=== PATIENT | female | born 1985 | race Asian ===

== ENCOUNTER 2023-04-09 07:39 | Emergency (ER) | payer OTHER ==
[~2023-04-09] VITALS: Ht 157.5 cm; Wt 59.4 kg
[2023-04-09 07:43] VITALS: BP 147/85; PULSE 106; RESP 14; TEMP 98.7; O2SAT 100
[2023-04-09] MEDS ORDERED: OFLO5SOL LEFT EYE (08:07)
[2023-04-09] MEDS ORDERED: CEPH-588 PO (08:07)
== END 2023-04-09 08:27 | disposition home or self-care (01) ==
LOC: MED 07:39
DX: L03.213 Periorbital cellulitis (principal); H00.014 Hordeolum externum left upper eyelid
CPT/HCPCS: 99283

== ENCOUNTER 2024-01-31 02:35 | Emergency (ER) | payer OTHER ==
[~2024-01-31] VITALS: Ht 135.9 cm; Wt 68.9 kg
[~2024-01-31 02:35] MED LIST: CEPH-588 PO; OFLO5SOL LEFT EYE
[2024-01-31 02:43] VITALS: BP 133/74; PULSE 104; RESP 14; TEMP 98.4; O2SAT 99
[2024-01-31 03:07] LABS: APPEARANCE,URINE CLEAR (CLEAR); BILIRUBIN,URINE NEGATIVE (NEGATIVE); BLOOD, URINE 1+ (NEGATIVE); COLOR,URINE YELLOW (YELLOW); LEUKOCYTE ESTERASE ,URINE NEGATIVE (NEGATIVE); NITRITE, URINE NEGATIVE (NEGATIVE); PROTEIN,URINE NEGATIVE (NEGATIVE); UGLUCOSE NEGATIVE (NEGATIVE); UROBILINOGEN,URINE 0.2 EU/dL (0.2 - 1)
[2024-01-31] MEDS ORDERED: METR-520 PO (04:21)
[2024-01-31 04:35] VITALS: BP 98/54; PULSE 87; RESP 18; O2SAT 95
[2024-01-31] MEDS: metroNIDAZOLE 500 MG TAB PO ONE (04:42)
== END 2024-01-31 04:35 | disposition home or self-care (01) ==
LOC: MED 02:35
DX: O23.592 Infection of other part of genital tract in pregnancy, second trimester (principal); N76.0 Acute vaginitis; O03.9 Complete or unspecified spontaneous abortion without complication; Z3A.19 19 weeks gestation of pregnancy; Z79.2 Long term (current) use of antibiotics; Z79.899 Other long term (current) drug therapy
CPT/HCPCS: 36415; 81003; 81025; 86901; 87210; 99284